=== PATIENT | female | born 1985 | race Caucasian/White ===

== ENCOUNTER 2016-07-23 02:18 | Emergency (ER) | payer BC, MEDICAID ==
[~2016-07-23] VITALS: Ht 160 cm; Wt 45.0 kg
[~2016-07-23 02:18] MED LIST: ADDE20XR PO; CITA20 PO; CLOR7.5T3 PO; SPIR50TA21 PO
[2016-07-23 02:50] VITALS: BP 121/80; PULSE 111; RESP 18; TEMP 97.9; O2SAT 96
[2016-07-23 03:19] LABS: AUTOMATED NEUTROPHIL # 5.9 TH/MM3 (1.8-7.7); BASOPHIL # 0.1 TH/MM3 (0-0.2); BASOPHIL % 0.6 % (0.0-2.0); EOSINOPHIL # 0.1 TH/MM3 (0-0.4); EOSINOPHIL % 0.7 % (0.0-4.0); HEMO FLAGS DIFF FINAL; LYMPHOCYTE # 2.3 TH/MM3 (1.0-4.8); MEAN CELL VOLUME 91.8 FL (80.0-100.0); MEAN CORPUSCULAR HEMOGLOBIN 31.2 PG (27.0-34.0); MONO % 5.6 % (0.0-8.0); NEUT % 67.1 % (16.0-70.0); PLATELET COUNT 345 TH/MM3 (150-450); RED CELL DISTRIBUTION WIDTH 13.6 % (11.6-17.2); WHITE BLOOD COUNT 8.7 TH/MM3 (4.0-11.0)
[2016-07-23 03:24] LABS: AMPHETAMINE, URINE NEG (NEG); BARBITURATES, URINE NEG (NEG); COCAINE, URINE POS (NEG)
[2016-07-23 03:35] LABS: ALT (GPT) 315 U/L (10-53); ANION GAP 10 MEQ/L (5-15); AST (GOT) 219 U/L (15-37); BICARBONATE 29.9 MEQ/L (21.0-32.0); BLOOD UREA NITROGEN 8 MG/DL (7-18); CHLORIDE 103 MEQ/L (98-107); GLOMERULAR FILTRATION RATE 106 ML/MIN (>89); POTASSIUM 4.4 MEQ/L (3.5-5.1); SODIUM (NA) 143 MEQ/L (136-145)
[2016-07-23 03:38] LABS: ALKALINE PHOSPHATASE 124 U/L (45-117); TOTAL BILIRUBIN ADULT 0.3 MG/DL (0.2-1.0)
[2016-07-23 04:26] VITALS: BP 122/80; PULSE 99; RESP 18; O2SAT 97
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
[2016-07-23 09:00] VITALS: BP 111/63; PULSE 98; RESP 16; O2SAT 99
[2016-07-23 12:04] VITALS: BP 123/77; PULSE 93; RESP 18; TEMP 98.1; O2SAT 99
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
== END 2016-07-23 18:56 | disposition home or self-care (01) ==
LOC: NEPC 02:18 → NEPJ 18:56
DX: F39 Unspecified mood [affective] disorder (principal); F19.10 Other psychoactive substance abuse, uncomplicated; R74.8 Abnormal levels of other serum enzymes; K70.10 Alcoholic hepatitis without ascites; S20.212A Contusion of left front wall of thorax, initial encounter; F19.94 Other psychoactive substance use, unspecified with psychoactive substance-induced mood disorder; R44.0 Auditory hallucinations; Z86.59 Personal history of other mental and behavioral disorders; Y04.8XXA Assault by other bodily force, initial encounter
CPT/HCPCS: 71101; 80053; 80307; 80320; 84703; 85025; 99283